=== PATIENT | female | born 2000 | race Two or more races ===

== ENCOUNTER 2023-08-24 08:15 | Emergency (ER) | payer MEDICAID ==
[~2023-08-24] VITALS: Ht 165.1 cm; Wt 54.5 kg
[2023-08-24 09:13] LABS: Basophils # (auto) 0.1 10 ^3/uL (0-0.2); Basophils % (auto) 0.9 % (0.0-2.0); Eosinophils # (auto) 0.1 10 ^3/uL (0-0.8); Eosinophils % (auto) 0.8 % (0.0-7.0); Hematocrit 44.6 % (36.0-46.0); Hemoglobin 14.6 g/dL (12.2-16.2); Lymphocytes % (auto) 20.1 % (10.0-50.0); Mean Corpuscular Hemoglobin 30.5 pg (28.0-32.0); Mean Corpuscular Hgb Conc. 32.7 g/dL (32.0-36.0); Mean Corpuscular Volume 93.3 fL (80.0-100.0); Monocytes # (auto) 0.5 10 ^3/uL (0-1.3); Neutrophils # (auto) 7.2 10 ^3/uL (1.6-8.6); Neutrophils % (auto) 73.2 % (37.0-80.0); Nucleated Red Blood Cells % 0.1 %; Red Blood Cells 4.78 10^6/uL (4.0-5.20); White Blood Cell 9.9 10^3/uL (4.4-10.8)
[2023-08-24 09:28] LABS: Urine Bacteria FEW /hpf (None Seen); Urine Blood Negative /uL (Negative); Urine Clarity HAZY (Clear); Urine Color Colorless (Yellow); Urine Protein, UAD Negative (Negative); Urine Specific Gravity 1.021 (1.001-1.035); Urine Urobilinogen Normal (Negative); Urine WBC 3 /hpf (0 - 5); Urine pH 5.5 (5.0-8.0)
[2023-08-24 09:50] LABS: Alanine Aminotransferase 22 U/L (7-40); Albumin 4.8 g/dL (3.2-4.8); Alkaline Phosphatase 66 U/L (46-116); Anion Gap 9 (5-15); Aspartate Aminotransferase 13 U/L (13-40); BUN/Creatinine Ratio 18.8 (10.0-20.0); Bilirubin, Total 0.5 mg/dL (0.2-1.0); Blood Urea Nitrogen 12 mg/dL (9-23); Calcium 9.7 mg/dL (8.5-10.1); Carbon Dioxide 23 mmol/L (20-30); Chloride 104 mmol/L (98-107); Glucose 92 mg/dL (74-106); Potassium 3.8 mmol/L (3.5-5.1); Sodium 136 mmol/L (136-145)
[2023-08-24] MEDS ORDERED: DOXY10TA OR (10:24)
[2023-08-24] MEDS ORDERED: NITR-87 PO (10:24)
[2023-08-24 13:56] VITALS: BP 126/92; TEMP 97.7
[2023-08-24 13:57] VITALS: PULSE 70; RESP 17; O2SAT 100
== END 2023-08-24 13:59 | disposition home or self-care (01) ==
LOC: ER 08:15
DX: O23.41 Unspecified infection of urinary tract in pregnancy, first trimester (principal); R10.2 Pelvic and perineal pain; N39.0 Urinary tract infection, site not specified; Z3A.08 8 weeks gestation of pregnancy
CPT/HCPCS: 36415; 76801; 80053; 81001; 81025; 83690; 84702; 85025